=== PATIENT | male | born 1980 ===

== ENCOUNTER 2017-07-07 09:37 | Emergency (ER) | payer OTHER ==
[2017-07-07 09:57] VITALS: BP 113/66
--- NOTE | 2017-07-07 10:15 | UC ---
Throat Pain/Nasal Govind HPI - HPI Summary HPI Summary: fever x 1 day chills, body aches, fatigue no cough , non nasal congest, no sore throat or ear pain no abd pain , n/v/d/c , no urinary sx - History of Current Complaint Chief Complaint: UCGeneralIllness Stated Complaint: FATIGUE, FEVER Time Seen by Provider: 07/07/17 09:48 Hx Obtained From: Patient Onset/Duration: Gradual Onset, Lasting Days - 1, Still Present Severity: Mild Pain Intensity: 2 Cough: None Associated Signs & Symptoms: Positive: Fever. Negative: Dysphagia, FB Sensation , Drooling, Hoarseness, Sinus Discomfort, Nasal Discharge, Vomiting, Rash - Allergies/Home Medications Allergies/Adverse Reactions: Allergies Allergy/AdvReac Type Severity Reaction Status Date / Time seasonal Allergy Unknown Unknown Uncoded 07/07/17 09:50 Reaction Details Home Medications: Home Medications Andrographis DAILY 07/07/17 [History] Ibuprofen TAB* [Advil TAB*] 400 mg PO Q6H PRN 07/07/17 [History Confirmed ] [place] DAILY 07/07/17 [History] PMH/Surg Hx/FS Hx/Imm Hx Previously Healthy: Yes - Surgical History Surgical History: None - Family History Known Family History: Negative: Diabetes - Social History Alcohol Use: Rare Substance Use Type: None Smoking Status (MU): Never Smoked Tobacco Review of Systems Constitutional: Fever, Chills, Fatigue Skin: Negative Eyes: Negative ENT: Negative Respiratory: Negative Cardiovascular: Negative Gastrointestinal: Negative Is Patient Immunocompromised?: No All Other Systems Reviewed And Are Negative: Yes Physical Exam Triage Information Reviewed: Yes Appearance: Well-Appearing, No Pain Distress, Well-Nourished Vital Signs: Initial Vital Signs Temp 98.3 F 07/07/17 09:52 Pulse 69 07/07/17 09:52 Resp 14 07/07/17 09:52 BP 113/66 07/07/17 09:52 Pulse Ox 100 07/07/17 09:52 Vital Signs Reviewed: Yes Eyes: Positive: Conjunctiva Clear ENT: Positive: Normal ENT inspection, Hearing grossly normal, Pharynx normal, Pharyngeal erythema Neck: Positive: Supple, Nontender, No Lymphadenopathy Respiratory: Positive: Chest non-tender, Lungs clear, Normal breath sounds, No respiratory distress Cardiovascular: Positive: RRR, No Murmur, Pulses Normal Abdominal Exam: Normal Abdomen Description: Positive: Nontender, Soft. Negative: CVA Tenderness (R), CVA Tenderness (L), Distended, Guarding Bowel Sounds: Positive: Present Skin Exam: Normal Throat Pain/Nasal Course/Dx - Differential Dx/Diagnosis Provider Diagnoses: viral illness Discharge - Sign-Out/Discharge Documenting (check all that apply): Discharge/Admit/Transfer - Discharge Plan Condition: Stable Disposition: HOME Patient Education Materials: Viral Syndrome (ED) Referrals: [place] MD [Primary Care Provider] - If Needed - Billing Disposition and Condition Condition: STABLE Disposition: HOME
== END 2017-07-07 10:20 | disposition home or self-care (01) ==
LOC: UCCORT 09:37
DX: B34.9 Viral infection, unspecified (principal)
CPT/HCPCS: 99201; G0463